=== PATIENT | female | born 1955 | race Caucasian/White ===

== ENCOUNTER 2017-12-04 19:24 | Emergency (ER) | payer OTHER ==
[2017-12-04 19:30] VITALS: TEMP 97.6
[2017-12-04] MEDS ORDERED: ASPIRIN 81 MG CHEWABLE CTB PO ONE (19:44)
[2017-12-04] MEDS ORDERED: ASPIRIN 81 MG CHEWABLE CTB ONE (19:55)
[2017-12-04 20:16] LABS: ALBUMIN 3.6 gm/dl (3.4-5.0); CALCIUM 8.5 mg/dl (8.5-10.1); POTASSIUM 3.8 mMol/L (3.5-5.1)
[2017-12-04 20:24] VITALS: RESP 99
[2017-12-04 21:03] LABS: HEMATOCRIT 42 % (35-47)
[2017-12-04 21:04] LABS: BASOPHILS % (MANUAL) 1 % (0-3); EOSINOPHILS % (MANUAL) 5 % (0-9); LYMPHOCYTES % (MANUAL) 37 % (10-50)
[2017-12-04 21:27] VITALS: BP 136/62; PULSE 74; O2SAT 98
[2017-12-09 08:00] LABS: MEAN CORPUSCULAR HGB CONC 34.5 gm/dl (32.0-36.0); MEAN CORPUSCULAR VOLUME 90 fL (81-99)
== END 2017-12-04 21:23 | disposition home or self-care (01) | DRG 93 ==
LOC: ED 19:24
DX: G25.0 Essential tremor (principal); R40.2142 Coma scale, eyes open, spontaneous, at arrival to emergency department; R78.89 Finding of other specified substances, not normally found in blood; R40.2362 Coma scale, best motor response, obeys commands, at arrival to emergency department; R40.2252 Coma scale, best verbal response, oriented, at arrival to emergency department
CPT/HCPCS: 70450; 80053; 85007; 85027; 93005; 99284; 99285

== ENCOUNTER 2019-01-02 10:08 | Outpatient (CLI) | payer BC ==
[2017-12-04 21:27] VITALS: O2SAT 98
== END 2019-01-02 10:09 | disposition home or self-care (01) ==
LOC: CONVCARE 10:08
PROVIDERS: ATTEND Orthopaedic Surgery
DX: M25.561 Pain in right knee (principal); M25.562 Pain in left knee; M17.0 Bilateral primary osteoarthritis of knee
CPT/HCPCS: 73562